=== PATIENT | female | born 1980 | race Caucasian/White ===

== ENCOUNTER 2018-12-02 23:27 | Emergency (ER) | payer MEDICAID, SELFPAY ==
[2018-12-03] MEDS ORDERED: Ibuprofen 800 MG TAB ONE (00:10)
[2018-12-03 00:20] LABS: Pregnancy Test - Urine (BHCG) Negative (Negative); Pregu Control Background? CLEAR/WHITE (CLR/WHITE); Pregu Control Bar Appear? YES (CONTROL BAR); Specific Gravity 1.025 (1.002-1.036)
[2018-12-03 00:30] LABS: Amphetamine Detected (NotDetected); Barbiturates Screen Detected (NotDetected); Benzodiazepine Screen Detected (NotDetected); Cocaine Metabolite Screen Not Detected (NotDetected); Medtox Control Line Valid? VALID (VALID); Methadone Not Detected (NotDetected); Methamphetamine Detected (NotDetected); Opiate Screen Not Detected (NotDetected); Oxycodone Screen Not Detected (NotDetected); Phencyclidine (PCP) Not Detected (NotDetected); THC/Cannabinoid Screen Detected (NotDetected); Tricyclic Screen Not Detected (NotDetected)
== END 2018-12-03 00:45 | disposition home or self-care (01) ==
LOC: MADERS 23:27
DX: S00.03XA Contusion of scalp, initial encounter (principal); S40.021A Contusion of right upper arm, initial encounter; S60.511A Abrasion of right hand, initial encounter; F12.10 Cannabis abuse, uncomplicated; F13.10 Sedative, hypnotic or anxiolytic abuse, uncomplicated; F15.10 Other stimulant abuse, uncomplicated; F41.9 Anxiety disorder, unspecified; F31.9 Bipolar disorder, unspecified; F17.210 Nicotine dependence, cigarettes, uncomplicated; Y04.8XXA Assault by other bodily force, initial encounter
CPT/HCPCS: 80306; 81025; 99284

== ENCOUNTER 2021-03-30 17:09 | Emergency (ER) | payer SELFPAY ==
[2021-03-30] MEDS ORDERED: Orphenadrine Citrate 60 MG/2 ML VIAL ONE (17:35)
== END 2021-03-30 18:53 | disposition home or self-care (01) ==
LOC: MADERS 17:09
DX: M62.830 Muscle spasm of back (principal); F15.10 Other stimulant abuse, uncomplicated; F17.200 Nicotine dependence, unspecified, uncomplicated
CPT/HCPCS: 72072; 72100; 96372; J2360

== ENCOUNTER 2021-05-23 20:52 | Emergency (ER) | payer SELFPAY | END 2021-05-23 21:40 | disposition left against medical advice (07) | LOC: MADERS 20:52 | DX: Z53.21 Procedure and treatment not carried out due to patient leaving prior to being seen by health care provider (principal) ==

== ENCOUNTER 2021-09-11 20:16 | Emergency (ER) | payer SELFPAY ==
[2021-09-11] MEDS ORDERED: Albuterol 200 PUFF (6.7GM INHALER) ONE (21:16)
[2021-09-11 21:38] LABS: Pregnancy Test - Urine (BHCG) Negative (Negative); Pregu Control Bar Appear? YES (CONTROL BAR); Specific Gravity 1.017 (1.002-1.036)
[2021-09-11 21:39] LABS: Pregu Control Background? CLEAR/WHITE (CLR/WHITE)
== END 2021-09-11 22:01 | disposition home or self-care (01) ==
LOC: MADERS 20:16
DX: J06.9 Acute upper respiratory infection, unspecified (principal); H92.01 Otalgia, right ear; G40.409 Other generalized epilepsy and epileptic syndromes, not intractable, without status epilepticus; F17.210 Nicotine dependence, cigarettes, uncomplicated; Z20.822 Contact with and (suspected) exposure to COVID-19; Z79.899 Other long term (current) drug therapy
CPT/HCPCS: 71045; 81025; 93005; 94760; U0003; U0005

== ENCOUNTER 2021-11-30 02:03 | Emergency (ER) | payer SELFPAY ==
[2021-11-30] MEDS ORDERED: predniSONE 20 MG TAB ONE (03:48)
[2021-11-30] MEDS ORDERED: Cyclobenzaprine 10 MG TAB ONE (03:48)
== END 2021-11-30 04:09 | disposition home or self-care (01) ==
LOC: MADERS 02:03
DX: S93.402A Sprain of unspecified ligament of left ankle, initial encounter (principal); S96.912A Strain of unspecified muscle and tendon at ankle and foot level, left foot, initial encounter; S39.012A Strain of muscle, fascia and tendon of lower back, initial encounter; S33.5XXA Sprain of ligaments of lumbar spine, initial encounter; S93.602A Unspecified sprain of left foot, initial encounter; M54.16 Radiculopathy, lumbar region; J45.909 Unspecified asthma, uncomplicated; G40.409 Other generalized epilepsy and epileptic syndromes, not intractable, without status epilepticus; F17.210 Nicotine dependence, cigarettes, uncomplicated; W11.XXXA Fall on and from ladder, initial encounter; Z79.899 Other long term (current) drug therapy
CPT/HCPCS: J7512

== ENCOUNTER 2022-02-13 01:43 | Emergency (ER) | payer SELFPAY ==
[2022-02-13] MEDS ORDERED: Ondansetron ODT 4 MG TAB ONE (02:12)
== END 2022-02-13 03:13 | disposition home or self-care (01) ==
LOC: MADERS 01:43
DX: J06.9 Acute upper respiratory infection, unspecified (principal); R11.2 Nausea with vomiting, unspecified
CPT/HCPCS: 87081; 87430; 87804; 99284; Q0162

== ENCOUNTER 2022-02-28 14:11 | Emergency (ER) | payer SELFPAY ==
[2022-02-28] MEDS ORDERED: Bacitracin 1 PK ONE (14:38)
[2022-02-28] MEDS ORDERED: Lidocaine 1% PF 5 ML VIAL ONE (14:38)
[2022-02-28] MEDS ORDERED: Lidocaine 1% w/Epinephrine 1:100K 30 ML VIAL ONE (14:45)
[2022-02-28] MEDS ORDERED: Acetaminophen 500 MG TAB ONE (15:15)
[2022-02-28] MEDS ORDERED: Boostrix 0.5 ML (Tdap) VIAL (>/=7 yrs of age) ONE (15:15)
[2022-02-28] MEDS ORDERED: Cyclobenzaprine 10 MG TAB ONE (15:15)
[2022-02-28 15:31] LABS: Pregnancy Test - Urine (BHCG) Negative (Negative); Pregu Control Background? CLEAR/WHITE (CLR/WHITE); Pregu Control Bar Appear? YES (CONTROL BAR)
[2022-02-28 16:06] LABS: Amphetamine Detected (NotDetected); Barbiturates Screen Not Detected (NotDetected); Benzodiazepine Screen Not Detected (NotDetected); Cocaine Metabolite Screen Not Detected (NotDetected); Medtox Control Line Valid? VALID (VALID); Methadone Not Detected (NotDetected); Methamphetamine Detected (NotDetected); Opiate Screen Not Detected (NotDetected); Oxycodone Screen Not Detected (NotDetected); Phencyclidine (PCP) Not Detected (NotDetected); THC/Cannabinoid Screen Not Detected (NotDetected); Tricyclic Screen Not Detected (NotDetected)
== END 2022-02-28 17:19 | disposition home or self-care (01) ==
LOC: MADERS 14:11
DX: S22.43XA Multiple fractures of ribs, bilateral, initial encounter for closed fracture (principal); S82.001A Unspecified fracture of right patella, initial encounter for closed fracture; S01.01XA Laceration without foreign body of scalp, initial encounter; M25.531 Pain in right wrist; J45.909 Unspecified asthma, uncomplicated; Y04.8XXA Assault by other bodily force, initial encounter; Z23 Encounter for immunization
CPT/HCPCS: 12001; 29125; 70450; 80306; 81025; 90471; 90715

== ENCOUNTER 2022-03-09 | Emergency (ER) | payer SELFPAY ==
[2022-03-09 01:06] LABS: #Basophils 0.1 thou/uL (0.0-0.2); #Eosinphils 0.5 thou/uL (0.0-0.7); #Lymphocytes 3.9 thou/uL (1.20-3.40); #Monocytes 0.9 thou/uL (0.11-0.59); %Basophils 0.5 % (0.0-1.0); %Eosinophils 2.8 % (0.0-10.0); %Lymphocytes 23.7 % (21.0-51.0); %Monocytes 5.2 % (0.0-10.0); %Neutrophils 67.8 % (42.0-75.0); Hemoglobin 14.6 g/dL (12.0-16.0); Mean Corpuscular HGB CONC 33.1 g/dL (32.0-36.0); Mean Corpuscular Volume 90.6 fl (78.0-98.0); Platelet Count 470 10x3/uL (130-400); RBC Distribution Width 11.2 % (11.5-14.5); Red Blood Cell (RBC) Count 4.87 mill/uL (4.20-5.40); White Blood Cell (WBC) Count 16.3 10x3/uL (4.8-10.8)
[2022-03-09 01:26] LABS: ALT (SGPT) 8 U/L (8-55); AST (SGOT) 10 U/L (5-34); Albumin 4.1 g/dL (3.5-5.0); Alkaline Phosphatase 104 U/L (40-110); Anion Gap 14 mmol/L (10-20); BUN (Urea Nitrogen) 12 mg/dL (7.0-18.7); Bilirubin, Total 0.3 mg/dL (0.2-1.2); Calc. Creatinine Clearance 0 mL/min (70-130); Calcium 9.6 mg/dL (7.8-10.44); Carbon Dioxide 22 mmol/L (22-29); Chloride 106 mmol/L (98-107); Estimated GFR 88; Globulin 3.8 g/dL (2.4-3.5); Glucose 97 mg/dL (70-105); Potassium 3.9 mmol/L (3.5-5.1); Protein, Total 7.9 g/dL (6.0-8.3); Sodium 138 mmol/L (136-145)
[2022-03-09 01:27] LABS: Acetaminophen Less than 10.0 mcg/mL (10.0-30.0); Alcohol Less than 10 mg/dL (Less than 10); Salicylate Less than 8.0 mg/dL (15.0-30.0)
[2022-03-09] MEDS ORDERED: Dexamethasone 10 MG/ML VIAL ONE (01:56)
[2022-03-09 02:11] LABS: Amphetamine Detected (NotDetected); Cocaine Metabolite Screen Not Detected (NotDetected); Methamphetamine Detected (NotDetected); Opiate Screen Detected (NotDetected); Phencyclidine (PCP) Not Detected (NotDetected); THC/Cannabinoid Screen Not Detected (NotDetected)
[2022-03-09 02:12] LABS: Barbiturates Screen Not Detected (NotDetected); Benzodiazepine Screen Not Detected (NotDetected); Medtox Control Line Valid? VALID (VALID); Methadone Not Detected (NotDetected); Oxycodone Screen Not Detected (NotDetected); Tricyclic Screen Not Detected (NotDetected)
[2022-03-09] MEDS ORDERED: Lidocaine 5% Patch TD SCH (02:15)
== END 2022-03-09 02:40 | disposition home or self-care (01) ==
LOC: MADERS
DX: R07.89 Other chest pain (principal); J45.909 Unspecified asthma, uncomplicated; F17.200 Nicotine dependence, unspecified, uncomplicated; Z79.899 Other long term (current) drug therapy
CPT/HCPCS: 71045; 80053; 80306; 80307; 85025; 93005; 96374; J1100

== ENCOUNTER 2022-05-03 16:29 | Emergency (ER) | payer SELFPAY ==
[2022-05-03] MEDS ORDERED: Metoclopramide HCl 10 MG/2 ML VIAL ONE (16:45)
[2022-05-03] MEDS ORDERED: Ketorolac Tromethamine 30 MG/ML VIAL ONE (16:45)
[2022-05-03] MEDS ORDERED: diphenhydrAMINE 50 MG/ML VIAL ONE (16:45)
[2022-05-03] MEDS ORDERED: Sodium Chloride 0.9% 1,000 ML ONE (16:45)
[2022-05-03 16:57] LABS: BHCG - Serum Negative (NEGATIVE); Pregs Control Background? CLEAR/WHITE (CLR/WHITE); Pregs Control Bar Appear? YES (CONTROL BAR)
[2022-05-03 17:07] LABS: ALT (SGPT) 8 U/L (8-55); AST (SGOT) 8 U/L (5-34); Albumin 4.2 g/dL (3.5-5.0); Alkaline Phosphatase 80 U/L (40-110); Anion Gap 17 mmol/L (10-20); BUN (Urea Nitrogen) 21 mg/dL (7.0-18.7); Bilirubin, Total 0.2 mg/dL (0.2-1.2); Calc. Creatinine Clearance 0 mL/min (70-130); Calcium 9.8 mg/dL (7.8-10.44); Carbon Dioxide 21 mmol/L (22-29); Chloride 107 mmol/L (98-107); Estimated GFR 80; Globulin 3.5 g/dL (2.4-3.5); Glucose 96 mg/dL (70-105); Potassium 4.6 mmol/L (3.5-5.1); Protein, Total 7.7 g/dL (6.0-8.3); Sodium 140 mmol/L (136-145)
[2022-05-03 17:12] LABS: Band 2 % (5-11); Eosinophils 3 % (0-10); Hemoglobin 16.2 g/dL (12.0-16.0); Lymphocytes 16 % (21-51); MDiff Complete? YES; Mean Corpuscular HGB CONC 33.6 g/dL (32.0-36.0); Mean Corpuscular Hemoglobin 29.4 pg (27.0-31.0); Mean Corpuscular Volume 87.5 fl (78.0-98.0); Mean Platelet Volume 5.7 fL (7.4-10.4); Monocytes 1 % (0-10); Neutrophil 59 % (42-75); Platelet Count 221 10x3/uL (130-400); Platelet Morphology Comment Appears Adequate; RBC Distribution Width 11.4 % (11.5-14.5); RBC Morphology Normal; Reactive Lymphocytes 19 % (0-10); Red Blood Cell (RBC) Count 5.52 mill/uL (4.20-5.40); White Blood Cell (WBC) Count 12.4 10x3/uL (4.8-10.8)
== END 2022-05-03 18:02 | disposition home or self-care (01) ==
LOC: MADERS 16:29
DX: R51.9 Headache, unspecified (principal); E86.0 Dehydration; G40.409 Other generalized epilepsy and epileptic syndromes, not intractable, without status epilepticus; F17.200 Nicotine dependence, unspecified, uncomplicated
CPT/HCPCS: 80053; 83735; 84703; 85025; 96361; 96374; 96375; J1200; J1885; J2765; J7050

== ENCOUNTER 2022-05-21 07:03 | Emergency (ER) | payer SELFPAY ==
[2022-05-21] MEDS ORDERED: Ibuprofen 800 MG TAB ONE (07:24)
== END 2022-05-21 08:59 | disposition home or self-care (01) ==
LOC: MADERS 07:03
DX: M54.41 Lumbago with sciatica, right side (principal); J45.909 Unspecified asthma, uncomplicated; Z79.899 Other long term (current) drug therapy; F17.290 Nicotine dependence, other tobacco product, uncomplicated
CPT/HCPCS: 72100

== ENCOUNTER 2022-07-13 18:34 | Emergency (ER) | payer SELFPAY ==
[2022-07-13] MEDS ORDERED: Fluorescein Opthalmic Strip ONE ×2 (18:52→19:01)
[2022-07-13] MEDS ORDERED: Tetracaine 0.5% PF 4 ML BOT ONE ×2 (18:52→19:01)
[2022-07-13] MEDS ORDERED: Erythromycin Base 0.5% Ophth Oint 3.5 gm Tube ONE (19:18)
== END 2022-07-13 19:42 | disposition home or self-care (01) ==
LOC: MADERS 18:34
DX: H57.11 Ocular pain, right eye (principal); J45.909 Unspecified asthma, uncomplicated; Z79.899 Other long term (current) drug therapy; F17.290 Nicotine dependence, other tobacco product, uncomplicated
CPT/HCPCS: 94760; 99283

== ENCOUNTER 2022-08-26 02:10 | Emergency (ER) | payer OTHER ==
[2022-08-26] MEDS ORDERED: Lidocaine Viscous Sol 2% 15 ml UD Cup ONE (02:14)
== END 2022-08-26 03:02 | disposition home or self-care (01) ==
LOC: MADERS 02:10
DX: T16.2XXA Foreign body in left ear, initial encounter (principal); S09.22XA Traumatic rupture of left ear drum, initial encounter; X58.XXXA Exposure to other specified factors, initial encounter
CPT/HCPCS: 69200

== ENCOUNTER 2023-02-05 17:51 | Emergency (ER) | payer OTHER ==
[2023-02-05] MEDS ORDERED: diphenhydrAMINE 50 MG/ML VIAL ONE (18:24)
[2023-02-05] MEDS ORDERED: levETIRAcetam 500 MG/5 ML VIAL ONE (18:24)
[2023-02-05] MEDS ORDERED: Sodium Chloride 0.9% 1,000 ML ONE (18:24)
[2023-02-05] MEDS ORDERED: Sodium Chloride 0.9% 100 ML ONE (18:25)
[2023-02-05 18:28] LABS: #Basophils 0.1 thou/uL (0.0-0.2); #Eosinphils 0.4 thou/uL (0.0-0.7); #Monocytes 1.1 thou/uL (0.11-0.59); %Basophils 0.5 % (0.0-1.0); %Eosinophils 2.8 % (0.0-10.0); %Lymphocytes 27.1 % (21.0-51.0); %Monocytes 7.6 % (0.0-10.0); %Neutrophils 61.9 % (42.0-75.0); Hematocrit 52.2 % (36.0-47.0); Hemoglobin 16.6 g/dL (12.0-16.0); INR-International Normal Ratio 0.9; Mean Corpuscular HGB CONC 31.8 g/dL (32.0-36.0); Mean Corpuscular Hemoglobin 29.8 pg (27.0-31.0); Mean Corpuscular Volume 93.4 fl (78.0-98.0); Mean Platelet Volume 6.9 fL (7.4-10.4); Platelet Count 371 10x3/uL (130-400); Prothrombin Time 12.6 sec (12.0-14.7); RBC Distribution Width 12.7 % (11.5-14.5); Red Blood Cell (RBC) Count 5.59 mill/uL (4.20-5.40); White Blood Cell (WBC) Count 14.6 10x3/uL (4.8-10.8)
[2023-02-05 18:29] LABS: PTT 26.2 sec (22.9-36.1)
[2023-02-05 18:32] LABS: BHCG - Serum Negative (NEGATIVE); Pregs Control Background? CLEAR/WHITE (CLR/WHITE); Pregs Control Bar Appear? YES (CONTROL BAR)
[2023-02-05 18:41] LABS: Troponin I Less than 0.010 ng/mL (< 0.028)
[2023-02-05 18:43] LABS: ALT (SGPT) 10 U/L (8-55); AST (SGOT) 12 U/L (5-34); Albumin 4.4 g/dL (3.5-5.0); Alkaline Phosphatase 72 U/L (40-110); Anion Gap 18 mmol/L (10-20); BUN (Urea Nitrogen) 8 mg/dL (7.0-18.7); Bilirubin, Total 0.4 mg/dL (0.2-1.2); CK (CPK) 24 U/L (29-168); Calc. Creatinine Clearance 0 mL/min (70-130); Calcium 9.4 mg/dL (7.8-10.44); Carbon Dioxide 16 mmol/L (22-29); Chloride 107 mmol/L (98-107); Estimated GFR 92; Globulin 3.6 g/dL (2.4-3.5); Glucose 104 mg/dL (70-105); Potassium 3.9 mmol/L (3.5-5.1); Sodium 137 mmol/L (136-145)
[2023-02-05 18:45] LABS: Acetaminophen Less than 10 mcg/mL (10.0-30.0); Alcohol Less than 10.0 mg/dL (Less than 10); Lipase 34 U/L (8-78); Salicylate Less than 8.0 mg/dL (15.0-30.0)
[2023-02-05 22:17] LABS: Bacteria/HPF 3+ HPF (None Seen); Bilirubin Negative (Negative); Blood, Urine Negative (Negative); CAUTI Indications for Culture Fever or rigors; Clarity Cloudy (Clear); Glucose, Urine (Dipstick) Negative (Negative); Ketone, Urine Negative (Negative); Leukocyte Small (Negative); Nitrite Positive (Negative); Protein, Urine (Dipstick) Negative (Neg-Trace); RBC/HPF 0-3 HPF (0-3); Specific Gravity, Urine 1.025 (1.005-1.030); Trichomonas/HPF 1+ HPF (None Seen); Urobilinogen 0.2 mg/dL (Less than 2); pH, Urine 5.5 (5.0-9.0)
[2023-02-05 22:19] LABS: Urine Culture Reflex Yes Yes
== END 2023-02-05 22:10 | disposition home or self-care (01) ==
LOC: MADERS 17:51
DX: R56.9 Unspecified convulsions (principal); F17.290 Nicotine dependence, other tobacco product, uncomplicated
CPT/HCPCS: 70450; 80053; 80307; 81001; 82550; 83605; 83690; 83735; 84443; 84484; 84703; 85025; 85610; 85730; 86140; 87077; 87086; 87186; 87804; 96365; 96375; J1200; J1953; J7050

== ENCOUNTER 2023-05-01 17:55 | Emergency (ER) | payer OTHER ==
[2023-05-01 18:53] LABS: SARS-CoV-2 NAA Rapid Test Not Detected (NotDetected)
== END 2023-05-01 19:01 | disposition home or self-care (01) ==
LOC: MADERS 17:55
DX: H66.91 Otitis media, unspecified, right ear (principal); J02.9 Acute pharyngitis, unspecified; Z11.52 Encounter for screening for COVID-19; F17.210 Nicotine dependence, cigarettes, uncomplicated; J45.909 Unspecified asthma, uncomplicated; Z79.899 Other long term (current) drug therapy
CPT/HCPCS: 87081; 87430; 99283; U0002

== ENCOUNTER 2023-05-05 10:58 | Emergency (ER) | payer OTHER ==
[2023-05-05] MEDS ORDERED: levETIRAcetam 500 MG (5 mL) VIAL ONE (11:14)
[2023-05-05] MEDS ORDERED: Sodium Chloride 0.9% 1,000 ML ONE (11:14)
[2023-05-05 11:23] LABS: #Basophils 0.1 thou/uL (0.0-0.2); #Eosinphils 0.2 thou/uL (0.0-0.7); #Lymphocytes 3.4 thou/uL (1.20-3.40); #Neutrophils 7.4 thou/uL (1.40-6.50); %Basophils 0.5 % (0.0-1.0); %Eosinophils 1.9 % (0.0-10.0); %Lymphocytes 28.3 % (21.0-51.0); %Monocytes 8.5 % (0.0-10.0); %Neutrophils 60.8 % (42.0-75.0); Hematocrit 49.7 % (36.0-47.0); Hemoglobin 15.7 g/dL (12.0-16.0); Mean Corpuscular HGB CONC 31.7 g/dL (32.0-36.0); Mean Corpuscular Hemoglobin 29.2 pg (27.0-31.0); Mean Platelet Volume 6.9 fL (7.4-10.4); Platelet Count 463 10x3/uL (130-400); RBC Distribution Width 12.2 % (11.5-14.5); White Blood Cell (WBC) Count 12.1 10x3/uL (4.8-10.8)
[2023-05-05 12:25] LABS: Bilirubin Negative (Negative); Blood, Urine Small (Negative); Clarity Slightly Cloudy (Clear); Glucose, Urine (Dipstick) Negative (Negative); Ketone, Urine Negative (Negative); Leukocyte Trace (Negative); Nitrite Negative (Negative); Protein, Urine (Dipstick) 30 mg/dL (Neg-Trace); Urobilinogen 0.2 mg/dL (Less than 2)
[2023-05-05 12:27] LABS: Pregnancy Test - Urine (BHCG) Negative (Negative); Pregu Control Background? CLEAR/WHITE (CLR/WHITE); Pregu Control Bar Appear? YES (CONTROL BAR); Specific Gravity 1.032 (1.002-1.036)
[2023-05-05] MEDS ORDERED: Acetaminophen 500 MG TAB ONE (12:27)
[2023-05-05 12:29] LABS: Specific Gravity, Urine 1.032 (1.002-1.036)
[2023-05-05 12:31] LABS: Bacteria/HPF 1+ HPF (None Seen); CAUTI Indications for Culture Alt mental st,lethar; WBC/HPF 21-50 HPF (0-3)
[2023-05-05 12:33] LABS: Urine Culture Reflex Yes Yes
[2023-05-05 12:34] LABS: Amphetamine Detected (NotDetected); Benzodiazepine Screen Not Detected (NotDetected); Cocaine Metabolite Screen Not Detected (NotDetected); Methadone Not Detected (NotDetected); Methamphetamine Detected (NotDetected); Opiate Screen Not Detected (NotDetected); Phencyclidine (PCP) Not Detected (NotDetected); THC/Cannabinoid Screen Not Detected (NotDetected); Tricyclic Screen Not Detected (NotDetected)
[2023-05-05 12:35] LABS: Barbiturates Screen Not Detected (NotDetected); Oxycodone Screen Not Detected (NotDetected)
[2023-05-05] MEDS ORDERED: Sodium Chloride 0.9% 100 ML ONE (12:58)
[2023-05-05] MEDS ORDERED: cefTRIAXone (ROCEPHIN) 1 GM VIAL ONE (12:58)
[2023-05-05 13:25] LABS: ALT (SGPT) 14 U/L (8-55); AST (SGOT) 13 U/L (5-34); Albumin 4.3 g/dL (3.5-5.0); Alkaline Phosphatase 80 U/L (40-110); Anion Gap 19 mmol/L (10-20); BUN (Urea Nitrogen) 17 mg/dL (7.0-18.7); Bilirubin, Total 0.4 mg/dL (0.2-1.2); Calc. Creatinine Clearance 0 mL/min (70-130); Calcium 9.5 mg/dL (7.8-10.44); Carbon Dioxide 17 mmol/L (22-29); Chloride 107 mmol/L (98-107); Estimated GFR 74; Globulin 3.8 g/dL (2.4-3.5); Glucose 108 mg/dL (70-105); Potassium 3.5 mmol/L (3.5-5.1); Protein, Total 8.1 g/dL (6.0-8.3); Sodium 139 mmol/L (136-145)
== END 2023-05-05 13:56 | disposition home or self-care (01) ==
LOC: MADERS 10:58
DX: R56.9 Unspecified convulsions (principal); J06.9 Acute upper respiratory infection, unspecified; N39.0 Urinary tract infection, site not specified; F17.210 Nicotine dependence, cigarettes, uncomplicated
CPT/HCPCS: 36415; 80053; 80306; 80307; 81001; 81025; 83605; 85025; 87086; 93005; 96361; 96365; 96375; J0696; J1953; J3490; J7050

== ENCOUNTER 2025-01-04 20:07 | Emergency (ER) | payer OTHER, SELFPAY ==
[2025-01-04] MEDS ORDERED: Acetaminophen 325 MG TAB ONE (20:20)
[2025-01-04] MEDS ORDERED: HYDROcodone/Acetaminophen 5/325 mg Tablet ONE (20:33)
== END 2025-01-04 20:49 | disposition home or self-care (01) ==
LOC: MADERS 20:07
DX: M62.830 Muscle spasm of back (principal); F17.210 Nicotine dependence, cigarettes, uncomplicated; R56.9 Unspecified convulsions; J45.909 Unspecified asthma, uncomplicated
CPT/HCPCS: 99283

== ENCOUNTER 2025-01-20 18:38 | Emergency (ER) | payer SELFPAY ==
[~2025-01-20 18:38] MED LIST: Iopamidol 370 76% 100 ML VIAL ONE
[2025-01-20] MEDS ORDERED: Ondansetron PF 4 MG/2 ML Vial ONE (19:14)
[2025-01-20] MEDS ORDERED: Dicyclomine 10 MG CAP ONE (19:14)
[2025-01-20 19:34] LABS: #Basophils 0.1 thou/uL (0.0-0.2); #Eosinophils 0.3 thou/uL (0.0-0.7); #Lymphocytes 3.5 thou/uL (1.20-3.40); #Monocytes 1.0 thou/uL (0.11-0.59); #Neutrophils 6.1 thou/uL (1.40-6.50); %Basophils 0.8 % (0.0-1.0); %Eosinophils 2.6 % (0.0-10.0); %Lymphocytes 32.0 % (21.0-51.0); %Monocytes 9.2 % (0.0-10.0); %Neutrophils 55.4 % (42.0-75.0); Hematocrit 54.3 % (36.0-47.0); Hemoglobin 16.7 g/dL (12.0-16.0); Mean Corpuscular Hemoglobin 28.8 pg (27.0-31.0); Mean Corpuscular Volume 93.4 fl (78.0-98.0); Platelet Count 385 10x3/uL (130-400); Red Blood Cell (RBC) Count 5.81 mill/uL (4.20-5.40); White Blood Cell (WBC) Count 11.0 10x3/uL (4.8-10.8)
[2025-01-20 19:37] LABS: ALT (SGPT) 14 U/L (Less than 34); AST (SGOT) 14 U/L (11-34); Albumin 4.2 g/dL (3.1-4.5); Alkaline Phosphatase 73 U/L (40-110); Anion Gap 19 mmol/L (10-20); BUN (Urea Nitrogen) 15 mg/dL (7.0-18.7); Bilirubin, Total 0.3 mg/dL (0.3-1.2); Calc. Creatinine Clearance 0 mL/min (70-130); Calcium 8.9 mg/dL (7.8-10.44); Carbon Dioxide 18 mmol/L (22-29); Chloride 107 mmol/L (98-107); Globulin 3.6 g/dL (2.4-3.5); Glucose 105 mg/dL (70-105); Lipase 34 U/L (8-78); Potassium 3.6 mmol/L (3.5-5.1); Sodium 140 mmol/L (136-145)
== END 2025-01-20 21:15 | disposition home or self-care (01) ==
LOC: MADERS 18:38
DX: K52.9 Noninfective gastroenteritis and colitis, unspecified (principal); F17.210 Nicotine dependence, cigarettes, uncomplicated
CPT/HCPCS: 74177; 80053; 83690; 85025; 96361; 96374; 96375; J2405; J3010; J7030; Q9967